=== PATIENT | female | born 1985 | race African-American/Black ===

== ENCOUNTER 2022-06-14 21:25 | Emergency (ER) | payer MEDICAID, OTHER ==
[~2022-06-14] VITALS: Ht 165.1 cm; Wt 96.9 kg
[~2022-06-14 21:25] MED LIST: ALBUTEROL; IBUP-2030 MT; METH-653 MT
[2022-06-15 05:31] VITALS: BP 145/95
[2022-06-15] MEDS ORDERED: ACETAMINOPHEN 325MG TABLET PO ONE (06:15)
[2022-06-15] MEDS ORDERED: TOPUD PO (07:37)
== END 2022-06-15 08:30 | disposition home or self-care (01) ==
LOC: ER 21:25
DX: M25.511 Pain in right shoulder (principal); M79.631 Pain in right forearm; R20.0 Anesthesia of skin
CPT/HCPCS: 73060; 73090; 99284

== ENCOUNTER 2024-09-09 06:21 | Emergency (ER) | payer MEDICAID, OTHER ==
[~2024-09-09] VITALS: Ht 170.2 cm; Wt 100.0 kg
[~2024-09-09 06:21] MED LIST changes: +TOPUD PO
[2024-09-09 06:23] VITALS: O2SAT 100
[2024-09-09 09:28] LABS: BASOPHILS % 0.6 % (0.0-2.0); EOSINOPHILS % 1.7 % (0.0-5.0); HEMATOCRIT. 36.6 % (36.0-48.0); HEMOGLOBIN. 11.9 g/dL (12.0-16.0); LYMPHOCYTES % 40.3 % (20.0-50.0); MEAN CORPUSCULAR HEMOGLOBIN 27.1 pg (28.0-32.0); MEAN CORPUSCULAR HGB CONC 32.6 g/dL (31.0-37.0); MEAN CORPUSCULAR VOLUME 83.4 fL (81.0-99.0); MEAN PLATELET VOLUME 7.3 fl (7.4-10.4); MONOCYTES % 7.5 % (2.0-8.0); NEUTROPHILS % 49.9 % (40.0-76.0); PLATELET 331 x1000/uL (130-400); RED BLOOD CELL COUNT 4.39 mill/uL (4.2-5.4); RED CELL DISTRIBUTION WIDTH 14.1 % (11.6-14.6); WHITE BLOOD COUNT 6.9 x1000/uL (4.5-11.0)
[2024-09-09 09:47] LABS: CHLORIDE 106 mEq/L (98-107); SODIUM 139 mEq/L (136-145)
[2024-09-09 09:48] LABS: CALCIUM 9.4 mg/dL (8.7-10.4); CARBON DIOXIDE 28 mEq/L (21-32)
[2024-09-09 09:53] LABS: CREATININE 0.8 mg/dL (0.6-1.0); GLUCOSE 97 mg/dL (70-105); HCG SCREEN NEGATIVE; UREA NITROGEN BLOOD 16 mg/dL (9-23)
[2024-09-09 09:54] LABS: TROPONIN I HIGH SENSITIVITY 5 ng/L (3.0-34)
[2024-09-09 22:47] VITALS: BP 138/103; PULSE 61; RESP 16; TEMP 36.78072; O2SAT 100
[2024-09-09] MEDS ORDERED: ACETAMINOPHEN 325MG TABLET PO PRN ×2 (23:30)
[2024-09-09] MEDS ORDERED: DOCUSATE SODIUM 100MG CAPSULE PO PRN (23:30)
[2024-09-09] MEDS ORDERED: ONDANSETRON HCL 4MG/2ML INJ IV PRN (23:30)
[2024-09-09] MEDS ORDERED: IPRATROPIUM/ALBUTEROL 0.5-3(2.5)MG/3ML NEB HHN PRN (23:30)
[2024-09-09] MEDS ORDERED: CLONIDINE 0.1MG TABLET PO PRN (23:30)
[2024-09-09] MEDS ORDERED: NALOXONE HCL 0.4MG/ML VIAL IV PRN (23:45)
[2024-09-09] MEDS ORDERED: TRAMADOL 50MG TABLET PO PRN (23:45)
== END 2024-09-09 23:12 | disposition left against medical advice (07) ==
LOC: ER 06:21 → EDBEDREQ 08:18 → CANBEDREQ 23:08 → ER 23:12
DX: S09.90XA Unspecified injury of head, initial encounter (principal); R55 Syncope and collapse; F10.90 Alcohol use, unspecified, uncomplicated; J45.909 Unspecified asthma, uncomplicated; X58.XXXA Exposure to other specified factors, initial encounter; Y93.89 Activity, other specified; Y92.89 Other specified places as the place of occurrence of the external cause; Y99.8 Other external cause status; Y90.9 Presence of alcohol in blood, level not specified
CPT/HCPCS: 36415; 71045; 80048; 84484; 84703; 85025; 93005; 99285